=== PATIENT | female | born 1955 | race Caucasian/White ===

== ENCOUNTER 2017-01-21 18:05 | Inpatient (IN) | payer OTHER ==
[2017-01-21 18:40] VITALS: BP 108/78; PULSE 140; RESP 20; TEMP 103.2; O2SAT 98
[2017-01-21] MEDS ORDERED: LORazepam 0.5 MG TAB PO PRN (18:45)
[2017-01-21] MEDS ORDERED: TEMAZEPAM 15 MG CAP PO PRN (18:45)
[2017-01-21 20:00] VITALS: BP 100/68; PULSE 112; RESP 16; TEMP 100.7; O2SAT 97
[2017-01-21] MEDS ORDERED: ACETAMINOPHEN 325 MG TAB PO STA (20:11)
[2017-01-21] MEDS ORDERED: SODIUM CHLORID 0.9% 500 ML INJ 500 ML IV ONE (20:15)
[2017-01-21] MEDS: PIPERACIL-TAZO 3.375 GM PREMIX 50 ML IV SCH (20:35)
[2017-01-21 20:51] LABS: AUTOMATED NEUTROPHIL # 13.3 TH/MM3 (1.8-7.7); BASOPHIL % 0.2 % (0.0-2.0); HEMATOCRIT 24.4 % (35.0-46.0); HEMO FLAGS DIFF FINAL; LYMPHOCYTE # 0.1 TH/MM3 (1.0-4.8); MEAN CELL VOLUME 83.9 FL (80.0-100.0); MEAN CORPUSCULAR HEMOGLOBIN 27.4 PG (27.0-34.0); MEAN CORPUSCULAR HGB CONC 32.6 % (32.0-36.0); MONO % 6.6 % (0.0-8.0); NEUT % 92.2 % (16.0-70.0); PLATELET COUNT 269 TH/MM3 (150-450); RED CELL DISTRIBUTION WIDTH 18.1 % (11.6-17.2); WHITE BLOOD COUNT 14.4 TH/MM3 (4.0-11.0)
[2017-01-21] MEDS: ONDANSETRON ODT 4 MG TAB PO PRN (20:53)
[2017-01-21 21:00] LABS: APTT (PATIENT) 39.7 SEC (24.3-30.1); INTERNATIONAL NORMALIZED RATIO 1.3 RATIO; PROTHROMBIN TIME - PATIENT 14.3 SEC (9.8-11.6)
[2017-01-21 21:05] LABS: ANION GAP 9 MEQ/L (5-15); AST (GOT) 97 U/L (15-37); BICARBONATE 25.6 MEQ/L (21.0-32.0); BLOOD UREA NITROGEN 12 MG/DL (7-18); CHLORIDE 99 MEQ/L (98-107); GLOMERULAR FILTRATION RATE 134 ML/MIN (>89); POTASSIUM 3.6 MEQ/L (3.5-5.1); SODIUM (NA) 134 MEQ/L (136-145)
[2017-01-21 21:06] LABS: ALT (GPT) 96 U/L (10-53)
[2017-01-21 21:08] LABS: ALKALINE PHOSPHATASE 237 U/L (45-117); INDIRECT BILIRUBIN 0.5 MG/DL (0.0-0.8)
--- NOTE | 2017-01-21 21:24 | MH ---
cc: TIERA PUENTES M.D. DATE OF ADMISSION: 01/21/2017 DATE OF : 1955 ADMISSION DIAGNOSES 1. Fevers. 2. Liver abscess versus mets. 3. Tachycardia. 4. Leukocytosis. HISTORY OF PRESENT ILLNESS Ms. Castelan is a 61-year-old woman with a history of anxiety, depression and a left lower extremity deep venous thrombosis with a persistent inferior vena cava filter. She is a well-known patient with a history of locally advanced left breast cancer, low ER positivity with a questionable metastatic focus at L4. She received neoadjuvant chemotherapy and had residual disease at definitive surgery. She had a pathologic stage T2 N2a M0, ER negative, MA negative, HER2/randa negative breast cancer. She completed left chest wall radiation. She completed radiation to the solitary L4 lesion. She had concurrent Xeloda. She had no evidence of disease at the time of completion of her therapy. She was seen in clinic on 01/15/2017. She was feeling unwell. Review of labs from December 19 shows new anemia with a hemoglobin 9.9, white blood cell count was 8.1, a platelet count of 418. Alkaline phosphatase was elevated at 139. She was seen by our Nurse Practitioner and followed up in two weeks' time. The repeat labs shows a white blood cell count increase of 13.1, hemoglobin of 9.1, platelet count decreased to 359, new liver shows abnormality with alkaline phosphatase of 148, AST of 42, ALT of 45. At the time of the consultation, she was feeling unwell. She describes a lot of nausea, abdominal discomfort, intermittent diarrhea and GI symptoms. She has had a mild flare of her rheumatoid arthritis. She has not been taking her immunosuppressive medication. We feared the possibility of metastatic disease recurrence. We coordinated CT scan of the chest, abdomen and pelvis. Significant finding is a liver lesion. This is felt to be multiple metastatic disease. The images were reviewed by the radiologist insurance professional and liver abscess could not be excluded. Ms. Castelan was also having fevers and review of our vitals in clinic shows a low grade temperature of 99.4 dating back to December 19 and on the day of admission her initial temperature is 99.6. During the clinic visit and evaluation of the information, she developed chills and rigors. Her temperature increased significantly. She was subsequently admitted to the hospital for treatment of liver abscess. REVIEW OF SYSTEMS Significant for a decrease in appetite, weight loss, abdominal discomfort, GI symptoms. She denies any headaches, no vision changes. She has nausea, no vomiting. She has a great deal of anxiety. She has been unable to drive because of her symptoms. PAST MEDICAL HISTORY 1. HPV infection. 2. Migraine headaches. 3. Left breast cancer. 4. Rheumatoid arthritis. 5. Left lower extremity deep venous thromboses. PAST SURGICAL HISTORY 1. HPV, LEEP procedure. 2. Lumpectomy. 3. Left mastectomy. 4. Vein surgery. 5. IVC filter placement. 6. Local thrombolysis of left leg. 7. Stent placement in the left leg. FAMILY HISTORY She lives alone and has a daughter who is an ORTHODONTIST in [place]. Father is . SOCIAL HISTORY She is . She lives alone. She drinks alcohol occasionally. Denies any illicit drug use. She is a never smoker. PHYSICAL EXAMINATION VITAL SIGNS: T-max 103.2, heart rate 140, respiratory rate 20, blood pressure 108/78, saturation 98%. GENERAL: Ms. Castelan is a well-developed, thin, pale appearing woman in rigors. HEENT: Her pupils are round and reactive to light and accommodation. Oropharynx is clear. NECK: Neck is supple. LUNGS: Lungs are clear to auscultation. CARDIOVASCULAR: Reveals a tachycardia. ABDOMEN: Abdomen is benign. EXTREMITIES: Lower extremities with asymmetry, right leg more prominent than the left. There is some left forearm swelling and left arm lymphedema. BREAST: Examination was deferred. LABORATORY DATA White blood cell count is 22,000 on outside reference lab, she is anemic with hemoglobin of 9.3. Liver functions are elevated. ASSESSMENT AND PLAN Ms. Castelan is a 61-year-old woman with multiple medical problems. She has a history of left breast cancer locally advanced. She received neoadjuvant chemotherapy with partial response. 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 Staging evaluation from June shows no evidence of metastatic disease in the liver. It is quite surprising to see a liver lesion quite large and extensive on a CT scan evaluation from 01/20/2017 at [facility]. I discussed at length with Ms. Castelan the differential includes metastatic breast cancer to the liver. An alternative consideration is the possibility of liver abscess. She is chronically immunosuppressed with her treatment for her rheumatoid arthritis. Although she has not been taking it religiously. She has had this progressive illness and weakness and fatigue and liver function elevation over the last three to four weeks. We discussed plans to initiate empiric antibiotic therapy. We will refer her to interventional radiology for biopsy versus drainage depending on the radiographic findings. In the meantime, supportive treatment with Tylenol, IV fluid hydration bolus. She appears to be clinically improved after a period. She is hungry, she is tolerating p.o. Antiemetic therapy will be provided. She has a history of anxiety and benzodiazepine Ativan is available for p.r.n. use. Temazepam is available for p.r.n. sleep. I will obtain an ultrasound of the right lower extremity and the left upper arm to rule out deep venous thromboses. She has had a history of deep venous thromboses and has an inferior vena cava filter that is in place. This is an increased risk for recurrence of lower extremity venous thromboembolic events. We will monitor her temperature and cultures. Empiric antibiotic therapy is initiated. The hospitalist from [facility] will be consulted to take care of her other medical problems. The case was discussed with Dr. Denton. MD KINDRA Barber/BRITTA /8:23 PM /8:37 PM
[2017-01-21 23:49] VITALS: BP 86/57; PULSE 84; TEMP 97.6
[2017-01-22] VITALS (10 sets, daily range): BP systolic 92–110; BP diastolic 52–70; PULSE 80–122; RESP 16–20; TEMP 97–102.7; O2SAT 93–98
[2017-01-22] MEDS ORDERED: SODIUM CHLORID 0.9% 500 ML INJ 500 ML IV STA (00:07)
[2017-01-22] MEDS: ACETAMINOPHEN 325 MG TAB PO PRN ×3 (03:53→22:31)
[2017-01-22] MEDS: PIPERACIL-TAZO 3.375 GM PREMIX 50 ML IV SCH ×3 (03:53→19:41)
[2017-01-22] MEDS: ONDANSETRON ODT 4 MG TAB PO PRN (04:55)
[2017-01-22] MEDS ORDERED: ONDANSETRON HCL 4 MG/2 ML VIAL IV PUSH PRN (09:00)
[2017-01-22] MEDS ORDERED: LIDOCAINE HCL 1% 20 ML VIAL ONE (09:23)
[2017-01-22] MEDS ORDERED: fentaNYL CITRATE 250 MCG/5 ML AMP ONE (09:41)
[2017-01-22] MEDS ORDERED: MIDAZOLAM HCL 5 MG/5 ML VIAL ONE (09:41)
--- NOTE | 2017-01-22 09:58 | PD.ONC.PN ---
Subjective Subjective Remarks Tmax 103.2 last night. (Patient seen at 140PM) Patient just back from CT guided liver biopsy. she is cold with rigors. She denies pain, but is afraid she will get nauseated as she usually does with the rigors. The nurse has just given her some tylenol. Objective Data Date Time Temp Pulse Resp B/P Pulse Ox O2 Delivery O2 Flow Rate FiO2 01/22/17 08:00 97.4 107 20 97/58 97 01/22/17 04:00 97.0 101 16 110/70 98 01/22/17 00:53 91 95/60 01/21/17 23:49 97.6 84 86/57 01/21/17 20:00 100.7 112 16 100/68 97 01/21/17 18:40 103.2 140 20 108/78 98 01/22/17 01/22/17 01/22/17 07:00 15:00 23:00 Intake Total 0 ml Balance 0 ml Result Diagram: 01/21/17200601/21/172006 Laboratory Results Laboratory Tests Test 01/21/17 20:07 White Blood Count 14.4 TH/MM3 Red Blood Count 2.90 MIL/MM3 Hemoglobin 7.9 GM/DL Hematocrit 24.4 % Mean Corpuscular Volume 83.9 FL Mean Corpuscular Hemoglobin 27.4 PG Mean Corpuscular Hemoglobin 32.6 % Concent Red Cell Distribution Width 18.1 % Platelet Count 269 TH/MM3 Mean Platelet Volume 8.5 FL Neutrophils (%) (Auto) 92.2 % Lymphocytes (%) (Auto) 1.0 % Monocytes (%) (Auto) 6.6 % Eosinophils (%) (Auto) 0.0 % Basophils (%) (Auto) 0.2 % Neutrophils # (Auto) 13.3 TH/MM3 Lymphocytes # (Auto) 0.1 TH/MM3 Monocytes # (Auto) 1.0 TH/MM3 Eosinophils # (Auto) 0.0 TH/MM3 Basophils # (Auto) 0.0 TH/MM3 CBC Comment DIFF FINAL Differential Comment Prothrombin Time 14.3 SEC Prothromb Time International 1.3 RATIO Ratio Activated Partial 39.7 SEC Thromboplast Time Sodium Level 134 MEQ/L Potassium Level 3.6 MEQ/L Chloride Level 99 MEQ/L Carbon Dioxide Level 25.6 MEQ/L Anion Gap 9 MEQ/L Blood Urea Nitrogen 12 MG/DL Creatinine 0.47 MG/DL Estimat Glomerular Filtration 134 ML/MIN Rate Random Glucose 105 MG/DL Calcium Level 7.6 MG/DL Total Bilirubin 1.0 MG/DL Direct Bilirubin 0.5 MG/DL Indirect Bilirubin 0.5 MG/DL Aspartate Amino Transf 97 U/L (AST/SGOT) Alanine Aminotransferase 96 U/L (ALT/SGPT) Alkaline Phosphatase 237 U/L Total Protein 4.7 GM/DL Albumin 1.9 GM/DL Culture Results Microbiology Date/Time Procedure Status Source Growth 01/21/17 19:50 Aerobic Blood Culture Received Blood Peripheral Pending 01/21/17 19:50 Anaerobic Blood Culture Received Blood Peripheral Pending 01/21/17 20:07 Aerobic Blood Culture Received Blood Peripheral Pending 01/21/17 20:07 Anaerobic Blood Culture Received Blood Peripheral Pending Administered Medications Medications (Trade) Dose Ordered Sig/Juan J Route PRN Reason Start Time Stop Time Status Last Admin Dose Admin Piperacillin Sod/ Tazobactam Sod (Zosyn 3.375 Gm Premix) 50 ml @ 100 mls/hr Q8H IV 01/21/17 20:00 01/22/17 03:53 Acetaminophen (Tylenol) 650 mg Q6HR PRN PO FEVER 01/21/17 20:45 01/22/17 03:53 Ondansetron HCl (Zofran Odt) 4 mg Q6H PRN PO nausea 01/21/17 20:45 01/22/17 04:55 Objective Remarks GENERAL: Middle aged female, pale, sitting up in bed shivering with multiple blankets in place. SKIN: Warm and dry. HEAD: Atraumatic. Normocephalic. EYES: Pupils equal and round. No injection or drainage. ENT: No nasal bleeding or discharge. Mucous membranes pink and moist. NECK: Trachea midline. CARDIOVASCULAR: Regular rate and rhythm. RESPIRATORY: No accessory muscle use. Clear to auscultation. Breath sounds equal bilaterally. GASTROINTESTINAL: Abdomen soft, non-tender, nondistended. bandage in place, along right upper quadrant is c/d/i. MUSCULOSKELETAL: Extremities without clubbing, cyanosis, or edema. No obvious deformities. NEUROLOGICAL: Awake and alert. Normal speech. Assessment/Plan Problem List: (1) Breast cancer Status: Acute Plan: --history of locally advanced left breast cancer, low ER positivity with a questionable metastatic focus at L4. --s/p neoadjuvant chemotherapy with residual disease at definitive surgery. --pathologic stage T2 N2a M0, ER negative, [place] negative, HER2/randa negative breast cancer. --s/p left chest wall radiation. --s/p radiation to the solitary L4 lesion. +concurrent Xeloda. --no evidence of disease at the time of completion of her therapy. (2) Liver lesion Status: Acute Plan: --liver abscess vs metastatic disease --Staging evaluation from June shows no evidence of metastatic disease in the liver. --is chronically immunosuppressed with her treatment for her rheumatoid arthritis. --interventional radiology for biopsy versus drainage depending on the radiographic findings. --supportive treatment with Tylenol, IV fluid hydration bolus --on IV Zosyn (3) History of DVT (deep vein thrombosis) Status: Acute Plan: --will obtain an ultrasound of the right lower extremity and the left upper arm to rule out deep venous thromboses. ++history of deep venous thromboses and has an inferior vena cava filter that is in place. T Assessment 61-year-old female admitted with Fevers. Liver abscess versus mets. Tachycardia. and Leukocytosis. history of anxiety, depression, LLE DVT with a persistent inferior vena cava filter. h/o Left mastectomy. Plan 1. await ultrasound 2. continue antibiotics. 3. continue supportive care with IVF, anti-emetics and tylenol Attending Statement The exam, history, and the medical decision-making described in the above note were completed with the assistance of the mid-level provider. I reviewed and agree with the findings presented. I attest that I had a [id number] encounter with the patient on the same day, and personally performed and documented my assessment and findings in the medical record. Pt seen and examined. Febrile in PM, rigors, chills, tachycardia and mild hypotension but liver biopsy did not show purulent material. Pending gm stain and culture. Continue empiric antibiotic and support. If metastatic breast cancer plan to treat with [place] pending approval. Anemia recommend transfusion. Follow pathology report. Jocelyn Ba Jan 22, 2017 09:58 Rain Chiu MD Jan 22, 2017 18:27
--- NOTE | 2017-01-22 11:43 | RADRPT ---
EXAM DATE/TIME: 01/22/2017 10:09 [facility] COMPARISON: No previous studies available for comparison. However, the patient's CT of abdomen and pelvis perform ed yesterday a [facility] was reviewed. INDICATIONS : Liver masses. SEDATION TIME: 30 minutes BIOPSY SITE: Right upper quadrant. MEDICATION(S): 1.) 1 mg midazolam (Versed) IV 2.) 50 mcg fentanyl (Sublimaze) IV DEVICE(S): 1.) 18 Fr Temno core biopsy needle MEDICAL HISTORY : Carcinoma, breast. Cardiovascular disease. Deep venous thrombosis. Rheumatoid arthrirts. SURGICAL HISTORY : Coronary artery stent. IVC Filter placement. Left lumpectomy. ENCOUNTER: Initial ACUITY: 1 day PAIN SCORE: 0/10 LOCATION: abdomen. A total of six core specimen(s) were obtained and sent to the laboratory for pathologic evaluation. PROCEDURE: 1. CT guided liver biopsy. Prior to the procedure informed consent was obtained. The patient's prior CT examination was reviewed . Using automated exposure control and adjustment of the mA and/or kV according to patient size, radiat ion dose was kept as low as reasonably achievable to obtain optimal diagnostic quality images. The site was prepped in a sterile fashion. Full sterile technique was used, including cap, mask, radha rile gloves and gown and a large sterile sheet. Hand hygiene and 2% chlorhexidine and/or betadine/al cohol prep was utilized per protocol for cutaneous antisepsis. The skin and subcutaneous tissues wer e infiltrated with local anesthetic solution. With CT guidance one of the right lobe liver masses was localized. Imaging demonstrates the lesion to have a hyperdense rim with surrounding mild hypodensity. Biopsy was performed using the prescribed n eedle as above. Adequate hemostasis was obtained with compression at the puncture site. Follow-up CT scan reveals no hemorrhage or acute abnormality. The patient tolerated the procedure well and there were no complications. The patient was returned to the Radiology Outpatient Unit in stable condition. CONCLUSION: Uncomplicated CT guided biopsy of one of the right lobe liver lesions. Aspiration of the lesion did n ot yield any purulent material. Multiple samples were sent for pathological evaluation as well as bouchra robiology analysis. Mandeep Caicedo MD on January 22, 2017 at 11:37 Board Certified Radiologist. This report was verified electronically.
--- NOTE | 2017-01-22 12:29 | PD.CONS ---
HPI Service CP Hospitalists Consult Requested By Primary Care Physician John Courtney MD Diagnoses: History of Present Illness Pt is 61 yo woman with hx left breast ca s/p lumpectomy, chemoradiation and follows with Dr Chiu. She has RA but has apparently been off of her immunosuppressive med Arava. She presented to clinic with ongoing sx's of weakness, nausea, poor appetitite, fevers and night sweats. Eval in office revealed elevation of LFT and ct abd/pelvis at [facility] showed a Large Liver lesion which could be a met vs liver abscess. She was directly admitted to evaluate this further. Review of Systems Other n/v f/c night sweats weakness. Past Family Social History Past Medical History left breast ca. locally advanced. lumpectomy. chemoradiation radiation to L4 lesion left leg dvt. thrombectomy. ivc filter left leg stenting RA.off immunosuppression anxiety/depression. Reported Medications none Allergies: Coded Allergies: No Known Allergies (Unverified , 04/02/16) Family History nc Social History no tob. social etoh Physical Exam Vital Signs oriented. nad heart reg lung cta abd s/nt ext no edema Vital Signs Date Time Temp Pulse Resp B/P Pulse Ox O2 Delivery O2 Flow Rate FiO2 01/22/17 12:05 105 16 97/64 98 01/22/17 11:35 95 16 95/53 96 01/22/17 11:05 99 16 98/63 97 01/22/17 10:50 98.3 94 18 94/60 93 01/22/17 08:00 97.4 107 20 97/58 97 01/22/17 04:00 97.0 101 16 110/70 98 01/22/17 00:53 91 95/60 01/21/17 23:49 97.6 84 86/57 01/21/17 20:00 100.7 112 16 100/68 97 01/21/17 18:40 103.2 140 20 108/78 98 Laboratory Laboratory Tests Test 01/21/17 20:07 White Blood Count 14.4 Red Blood Count 2.90 Hemoglobin 7.9 Hematocrit 24.4 Mean Corpuscular Volume 83.9 Mean Corpuscular Hemoglobin 27.4 Mean Corpuscular Hemoglobin 32.6 Concent Red Cell Distribution Width 18.1 Platelet Count 269 Mean Platelet Volume 8.5 Neutrophils (%) (Auto) 92.2 Lymphocytes (%) (Auto) 1.0 Monocytes (%) (Auto) 6.6 Eosinophils (%) (Auto) 0.0 Basophils (%) (Auto) 0.2 Neutrophils # (Auto) 13.3 Lymphocytes # (Auto) 0.1 Monocytes # (Auto) 1.0 Eosinophils # (Auto) 0.0 Basophils # (Auto) 0.0 CBC Comment DIFF FINAL Differential Comment Prothrombin Time 14.3 Prothromb Time International 1.3 Ratio Activated Partial 39.7 Thromboplast Time Sodium Level 134 Potassium Level 3.6 Chloride Level 99 Carbon Dioxide Level 25.6 Anion Gap 9 Blood Urea Nitrogen 12 Creatinine 0.47 Estimat Glomerular Filtration 134 Rate Random Glucose 105 Calcium Level 7.6 Total Bilirubin 1.0 Direct Bilirubin 0.5 Indirect Bilirubin 0.5 Aspartate Amino Transf 97 (AST/SGOT) Alanine Aminotransferase 96 (ALT/SGPT) Alkaline Phosphatase 237 Total Protein 4.7 Albumin 1.9 Date/Time Procedure Status Source Growth 01/22/17 10:30 Gram Stain Received Fluid Other Pending 01/22/17 10:30 Body Fluid Culture Received Fluid Other Pending 01/21/17 20:07 Aerobic Blood Culture - Preliminary Resulted Blood Peripheral NO GROWTH IN 1 DAY 01/21/17 20:07 Anaerobic Blood Culture - Preliminary Resulted Blood Peripheral NO GROWTH IN 1 DAY Result Diagram: 01/21/17200601/21/172006 Assessment and Plan Problem List: (1) Liver lesion Status: Acute Plan: Pt has hx left breast ca s/p lumpectomy, chemoradiation. rad L4 lesion. Presents with elevation of LFT/liver lesion met vs abscess and sx's of n/v fever, night sweats and weakness. noted to also be anemic on bloodwork. Discussed with Dr Chiu. she had blood cx last night and started on broad abx with zosyn going for CT guided bx/aspiration of the lesion with radiology today echo blood tx per hem/onc prn antiemetics ivf dvt prophylaxis (2) History of DVT (deep vein thrombosis) Status: Resolved Plan: s/p thrombectomy/ivc filter (3) Breast cancer Status: Chronic Plan: see above (4) Rheumatoid arthritis Status: Chronic Plan: off her Arava. Nate Denton MD Jan 22, 2017 12:29
[2017-01-22] MEDS: PANTOPRAZOLE SOD 20 MG DELAYED RELEASE TAB PO SCH (13:26)
[2017-01-22] MEDS: SODIUM CHLOR 0.9% 1000 ML INJ 1,000 ML IV SCH (13:45)
[2017-01-22] MEDS ORDERED: diphenhydrAMINE HCL 25 MG CAP PO PRN (15:00)
[2017-01-22] MEDS ORDERED: SODIUM CHLOR 0.9% 250 ML INJ 250 ML IV ONE (15:00)
[2017-01-22] MEDS ORDERED: ACETAMINOPHEN 325 MG TAB PO PRN (15:00)
[2017-01-22] MEDS ORDERED: IBUPROFEN 400 MG TAB PO ONE (15:15)
[2017-01-22] MEDS ORDERED: PROMETHAZINE HCL 12.5 MG SUPP RECTAL PRN (15:15)
[2017-01-22 15:21] LABS: AUTOMATED NEUTROPHIL # 12.5 TH/MM3 (1.8-7.7); BASOPHIL % 0.3 % (0.0-2.0); EOSINOPHIL % 0.1 % (0.0-4.0); HEMATOCRIT 27.4 % (35.0-46.0); HEMO FLAGS DIFF FINAL; LYMPH % 1.5 % (9.0-44.0); LYMPHOCYTE # 0.2 TH/MM3 (1.0-4.8); MEAN CELL VOLUME 85.4 FL (80.0-100.0); MEAN CORPUSCULAR HEMOGLOBIN 27.9 PG (27.0-34.0); MEAN CORPUSCULAR HGB CONC 32.7 % (32.0-36.0); MONO % 2.4 % (0.0-8.0); NEUT % 95.7 % (16.0-70.0); PLATELET COUNT 261 TH/MM3 (150-450); RED BLOOD COUNT 3.21 MIL/MM3 (4.00-5.30); RED CELL DISTRIBUTION WIDTH 17.8 % (11.6-17.2)
[2017-01-22 15:39] LABS: ALT (GPT) 95 U/L (10-53); ANION GAP 8 MEQ/L (5-15); AST (GOT) 134 U/L (15-37); BICARBONATE 26.7 MEQ/L (21.0-32.0); BLOOD UREA NITROGEN 11 MG/DL (7-18); CHLORIDE 106 MEQ/L (98-107); GLOMERULAR FILTRATION RATE 183 ML/MIN (>89); POTASSIUM 3.8 MEQ/L (3.5-5.1); SODIUM (NA) 141 MEQ/L (136-145)
[2017-01-22 15:42] LABS: ALKALINE PHOSPHATASE 267 U/L (45-117); TOTAL BILIRUBIN ADULT 1.4 MG/DL (0.2-1.0)
--- NOTE | 2017-01-22 16:35 | RADRPT ---
EXAM DATE/TIME: 01/22/2017 15:46 [facility] COMPARISON: No previous studies available for comparison. INDICATIONS : Left arm swelling. MEDICAL HISTORY : Rheumatoid arthritis. Carcinoma, breast. Deep venous thrombosis. SURGICAL HISTORY : Two stents and filter placed for blood clot. Lumpectomy. Chemotherapy. Radiation therapy. ENCOUNTER: Initial ACUITY: 1 day PAIN SCORE: 2/10 LOCATION: Left arm. FINDINGS: There is spontaneous flow documented in the brachial, basilic, cephalic, axillary, and subclavian vei ns. The vessels are compressible and augmentation response is documented. No filling defects are se en. The flow is phasic with respiration. Direction of flow in the jugular vein is caudal. CONCLUSION: No DVT is identified within the left upper extremity. Mandeep Caicedo MD on January 22, 2017 at 16:32 Board Certified Radiologist. This report was verified electronically.
--- NOTE | 2017-01-22 17:02 | RADRPT ---
EXAM DATE/TIME: 01/22/2017 15:21 [facility] COMPARISON: No previous studies available for comparison. EXTERNAL COMPARISON : [facility], US LEG, LEFT VENOUS DOPPLER, May 22, 2014 INDICATIONS : Bilateral leg swelling. MEDICAL HISTORY : Rheumatoid arthritis. Carcinoma, breast. Deep venous thrombosis. SURGICAL HISTORY : Two stents and filter placed for blood clot. Lumpectomy. Chemotherapy. Radiation therapy. ENCOUNTER: Initial ACUITY: 1 day PAIN SCORE: 2/10 LOCATION: Bilateral leg. TECHNIQUE: Venous ultrasound of the left and right leg was performed from the inguinal ligament to the proximal calf. Real-time, color Doppler and spectral tracing, compression and augmentation techniques were us ed. FINDINGS: RIGHT LEG: There is normal compressibility of the deep venous system from the inguinal region to the proximal ca lf. No echogenic clot is seen in the lumen of the common femoral, femoral, popliteal, and posterior tibial veins. There is a normal response of the venous system to proximal and distal augmentation an d respiration. LEFT LEG: There is normal compressibility of the deep venous system from the inguinal region to the proximal ca lf. No echogenic clot is seen in the lumen of the common femoral, femoral, popliteal, and posterior tibial veins. There is a normal response of the venous system to proximal and distal augmentation an d respiration. CONCLUSION: 1. No sonographic evidence for lower extremity deep venous thrombosis bilaterally. Jorge Lopez MD on January 22, 2017 at 16:59 Board Certified Radiologist. This report was verified electronically.
[2017-01-23] VITALS (9 sets, daily range): BP systolic 92–100; BP diastolic 53–62; PULSE 82–150; RESP 18–22; TEMP 97.4–101.2; O2SAT 95–98
[2017-01-23] MEDS ORDERED: no medication (01:47)
[2017-01-23] MEDS: PIPERACIL-TAZO 3.375 GM PREMIX 50 ML IV SCH ×2 (04:29→13:00)
[2017-01-23] MEDS: SODIUM CHLOR 0.9% 1000 ML INJ 1,000 ML IV SCH ×2 (04:29→16:58)
[2017-01-23] MEDS: ACETAMINOPHEN 325 MG TAB PO PRN ×3 (05:25→18:38)
[2017-01-23] MEDS ORDERED: NON-FORMULARY DRUG IM ONE (07:00)
[2017-01-23] MEDS: PANTOPRAZOLE SOD 20 MG DELAYED RELEASE TAB PO SCH (08:25)
[2017-01-23] MEDS: METOCLOPRAMIDE HCL 10 MG/2 ML VIAL IV PUSH PRN ×2 (08:26→18:38)
--- NOTE | 2017-01-23 08:43 | HHI.PR ---
Subjective Remarks nauseated this AM..but trying to order breakfast. some rigors overnight. Objective Vitals heart reg lung cta abd s/nt ext no edema Vital Signs Date Time Temp Pulse Resp B/P Pulse Ox O2 Delivery O2 Flow Rate FiO2 01/23/17 05:27 98.7 01/23/17 04:00 97.4 97 18 98/60 98 01/23/17 02:23 97.4 01/23/17 00:00 97.5 82 18 96/62 98 01/22/17 20:00 98.6 80 20 92/55 95 01/22/17 16:34 100.0 122 20 98/52 96 01/22/17 15:15 102.7 01/22/17 12:05 105 16 97/64 98 01/22/17 11:35 95 16 95/53 96 01/22/17 11:05 99 16 98/63 97 01/22/17 10:50 98.3 94 18 94/60 93 01/22/17 01/22/17 01/23/17 15:00 23:00 07:00 Intake Total 240 ml 234 ml 240 ml Balance 240 ml 234 ml 240 ml Intake Oral 240 ml 240 ml IV Total 234 ml # Voids 1 2 Result Diagram: 01/22/17 1434 01/22/17 1434 A/P Problem List: (1) Liver lesion Status: Acute Plan: Pt has hx left breast ca s/p lumpectomy, chemoradiation. rad L4 lesion. Presents with elevation of LFT/liver lesion met vs abscess and sx's of n/v fever, night sweats and weakness. noted to also be anemic on bloodwork. Discussed with Dr Chiu. blood cx pending and started on broad abx with zosyn CT guided biopsy of the lesion with radiology 01/22..cx/path pending. no pus aspirated. echo pending. blood tx per hem/onc on 01/22 prn antiemetics nutrition supplement ivf dvt prophylaxis (2) History of DVT (deep vein thrombosis) Status: Resolved Plan: s/p thrombectomy/ivc filter (3) Breast cancer Status: Chronic Plan: see above (4) Rheumatoid arthritis Status: Chronic Plan: off her Arava. Nate Denton MD Jan 23, 2017 08:43
[2017-01-23] MEDS ORDERED: ONDANSETRON HCL 4 MG/2 ML VIAL IV PUSH PRN (09:00)
--- NOTE | 2017-01-23 10:45 | PD.ONC.PN ---
Subjective Subjective Remarks Afebrile overnight. Patient feeling much better today. She ate corn flakes and applesauce for breakfast. No vomiting today. No abdominal pain. Color in face improved. Objective Data Date Time Temp Pulse Resp B/P Pulse Ox O2 Delivery O2 Flow Rate FiO2 01/23/17 08:59 98.0 114 20 94/53 98 01/23/17 05:27 98.7 01/23/17 04:00 97.4 97 18 98/60 98 01/23/17 02:23 97.4 01/23/17 00:00 97.5 82 18 96/62 98 01/22/17 20:00 98.6 80 20 92/55 95 01/22/17 16:34 100.0 122 20 98/52 96 01/22/17 15:15 102.7 01/22/17 12:05 105 16 97/64 98 01/22/17 11:35 95 16 95/53 96 01/22/17 11:05 99 16 98/63 97 01/22/17 10:50 98.3 94 18 94/60 93 01/23/17 01/23/17 01/23/17 07:00 15:00 23:00 Intake Total 240 ml Balance 240 ml Result Diagram: 01/22/17 1434 01/22/17 1434 Laboratory Results Laboratory Tests Test 01/22/17 14:34 White Blood Count 13.0 TH/MM3 Red Blood Count 3.21 MIL/MM3 Hemoglobin 9.0 GM/DL Hematocrit 27.4 % Mean Corpuscular Volume 85.4 FL Mean Corpuscular Hemoglobin 27.9 PG Mean Corpuscular Hemoglobin 32.7 % Concent Red Cell Distribution Width 17.8 % Platelet Count 261 TH/MM3 Mean Platelet Volume 8.4 FL Neutrophils (%) (Auto) 95.7 % Lymphocytes (%) (Auto) 1.5 % Monocytes (%) (Auto) 2.4 % Eosinophils (%) (Auto) 0.1 % Basophils (%) (Auto) 0.3 % Neutrophils # (Auto) 12.5 TH/MM3 Lymphocytes # (Auto) 0.2 TH/MM3 Monocytes # (Auto) 0.3 TH/MM3 Eosinophils # (Auto) 0.0 TH/MM3 Basophils # (Auto) 0.0 TH/MM3 CBC Comment DIFF FINAL Differential Comment Sodium Level 141 MEQ/L Potassium Level 3.8 MEQ/L Chloride Level 106 MEQ/L Carbon Dioxide Level 26.7 MEQ/L Anion Gap 8 MEQ/L Blood Urea Nitrogen 11 MG/DL Creatinine 0.36 MG/DL Estimat Glomerular Filtration 183 ML/MIN Rate Random Glucose 86 MG/DL Lactic Acid Level 2.4 mmol/L Calcium Level 7.7 MG/DL Total Bilirubin 1.4 MG/DL Aspartate Amino Transf 134 U/L (AST/SGOT) Alanine Aminotransferase 95 U/L (ALT/SGPT) Alkaline Phosphatase 267 U/L Total Protein 4.8 GM/DL Albumin 1.8 GM/DL Culture Results Microbiology Date/Time Procedure Status Source Growth 01/21/17 19:50 Aerobic Blood Culture - Preliminary Resulted Blood Peripheral NO GROWTH IN 1 DAY 01/21/17 19:50 Anaerobic Blood Culture - Preliminary Resulted Blood Peripheral NO GROWTH IN 1 DAY 01/21/17 20:07 Aerobic Blood Culture - Preliminary Resulted Blood Peripheral NO GROWTH IN 1 DAY 01/21/17 20:07 Anaerobic Blood Culture - Preliminary Resulted Blood Peripheral NO GROWTH IN 1 DAY 01/22/17 10:30 Gram Stain - Final Resulted Fluid Other 01/22/17 10:30 Body Fluid Culture Resulted Fluid Other Pending 01/22/17 14:30 Influenza Types A,B Antigen (ZACHARIAH) - Final Complete Nasal Aspirate NEGATIVE FOR FLU A AND B ANTIGEN.... Administered Medications Medications (Trade) Dose Ordered Sig/Juan J Route PRN Reason Start Time Stop Time Status Last Admin Dose Admin Piperacillin Sod/ Tazobactam Sod (Zosyn 3.375 Gm Premix) 50 ml @ 100 mls/hr Q8H IV 01/21/17 20:00 01/23/17 04:29 Acetaminophen (Tylenol) 650 mg Q6HR PRN PO FEVER 01/21/17 20:45 01/23/17 05:25 Ondansetron HCl (Zofran Odt) 4 mg Q6H PRN PO nausea 01/21/17 20:45 01/22/17 04:55 Pantoprazole Sodium 20 mg 20 mg DAILY PO 01/22/17 09:00 01/23/17 08:25 Sodium Chloride (NS 1000 ml Inj) 1,000 ml @ 83 mls/hr Q12H3M IV 01/22/17 13:45 01/23/17 04:29 Metoclopramide HCl (Reglan Inj) 10 mg Q8H PRN IV PUSH persistent n/v 01/23/17 07:30 01/23/17 08:26 Objective Remarks GENERAL: Middle aged female, sitting up in bed in nad. Color in face improved. SKIN: Warm and dry. HEAD: Normocephalic. EYES: No injection or drainage. MOUTH: pharynx clear. NECK: Supple, trachea midline. CARDIOVASCULAR: Regular rate and rhythm RESPIRATORY: Breath sounds equal bilaterally. No accessory muscle use. GASTROINTESTINAL: Abdomen soft, non-tender, nondistended. bandage in place, right upper quadrant is c/d/i. EXTREMITIES: No cyanosis, or edema. MUSCULOSKELETAL: Adequate muscle tone. Assessment/Plan Problem List: (1) Sepsis Status: Acute Plan: --BC no growth --on IV Zosyn --echo pending (2) Breast cancer Status: Chronic Plan: --history of locally advanced left breast cancer, low ER positivity with a questionable metastatic focus at L4. --s/p neoadjuvant chemotherapy with residual disease at definitive surgery. --pathologic stage T2 N2a M0, ER negative, [place] negative, HER2/randa negative breast cancer. --s/p left chest wall radiation. --s/p radiation to the solitary L4 lesion. +concurrent Xeloda. --no evidence of disease at the time of completion of her therapy. (3) Liver lesion Status: Acute Plan: --liver abscess vs metastatic disease --s/p biopsy in IR, pathology pending. --Staging evaluation from June showed no evidence of metastatic disease in the liver. --supportive treatment with Tylenol, IV fluid hydration --on IV Zosyn (4) History of DVT (deep vein thrombosis) Status: Resolved Plan: --u/s RLE and LUE both negative for DVT ++history of deep venous thromboses and has an inferior vena cava filter that is in place. Assessment 61-year-old female admitted with Fevers. Liver abscess versus mets. Tachycardia. and Leukocytosis. history of anxiety, depression, LLE DVT with a persistent inferior vena cava filter. h/o Left mastectomy. Plan 1. continue IVF, anti-emetics and Zosyn 2. await echo 3. continue diet as tolerated. 4. await pathology Attending Statement The exam, history, and the medical decision-making described in the above note were completed with the assistance of the mid-level provider. I reviewed and agree with the findings presented. I attest that I had a [id number] encounter with the patient on the same day, and personally performed and documented my assessment and findings in the medical record. Pt seen and examined. Discussed the biopsy finding metastatic breast cancer in liver. Fevers likely due to tumor fever, cultures neg, stop Abx, monitor off abx. Start Naprosen to stop/control fevers. Check CBC in AM. Transfuse as needed for hgb <8.0. Monitor for bleeding. Plan to initiate palliative chemo on Thursday. Jocelyn Ba Jan 23, 2017 10:45 Rain Chiu MD Jan 23, 2017 19:54
[2017-01-23 12:40] LABS: AUTOMATED NEUTROPHIL # 21.9 TH/MM3 (1.8-7.7); BASOPHIL # 0.1 TH/MM3 (0-0.2); BASOPHIL % 0.6 % (0.0-2.0); EOSINOPHIL % 0.1 % (0.0-4.0); HEMATOCRIT 25.4 % (35.0-46.0); LYMPH % 0.6 % (9.0-44.0); LYMPHOCYTE # 0.1 TH/MM3 (1.0-4.8); MEAN CELL VOLUME 85.5 FL (80.0-100.0); MEAN CORPUSCULAR HEMOGLOBIN 27.8 PG (27.0-34.0); MEAN CORPUSCULAR HGB CONC 32.5 % (32.0-36.0); MONO % 2.9 % (0.0-8.0); NEUT % 95.8 % (16.0-70.0); PLATELET COUNT 186 TH/MM3 (150-450); RED BLOOD COUNT 2.97 MIL/MM3 (4.00-5.30); RED CELL DISTRIBUTION WIDTH 18.1 % (11.6-17.2); WHITE BLOOD COUNT 22.9 TH/MM3 (4.0-11.0)
[2017-01-23 12:46] LABS: HEMO FLAGS AUTO DIFF
[2017-01-23 13:02] LABS: ALT (GPT) 79 U/L (10-53); ANION GAP 6 MEQ/L (5-15); AST (GOT) 104 U/L (15-37); BICARBONATE 26.3 MEQ/L (21.0-32.0); BLOOD UREA NITROGEN 15 MG/DL (7-18); CHLORIDE 110 MEQ/L (98-107); GLOMERULAR FILTRATION RATE 149 ML/MIN (>89); POTASSIUM 3.4 MEQ/L (3.5-5.1); SODIUM (NA) 142 MEQ/L (136-145)
[2017-01-23 13:04] LABS: ALKALINE PHOSPHATASE 289 U/L (45-117); TOTAL BILIRUBIN ADULT 0.8 MG/DL (0.2-1.0)
[2017-01-23 14:36] LABS: BANDS 44 % (0-6); METAMYELOCYTES 1 % (0-1); OVALOCYTES 1+ (NORMAL); POLYS (SEG NEUTROPHILS) 51 % (16-70); WBC DIFF SAMPLE 100
[2017-01-23 14:38] LABS: BURR CELLS 2+ (NORMAL); HELMET CELLS OCC (NORMAL); PLATELET ESTIMATE SMEAR NORMAL (NORMAL); PLATELET MORPHOLOGY NORMAL (NORMAL); SCAN/DIFF FINAL DIFF MANUAL; TOXIC GRANULATION 1+ (NORMAL); TOXIC VACUOLATION PRESENT (NONE SEEN)
[2017-01-23 14:39] LABS: KERATOCYTES 1+ (NORMAL)
--- NOTE | 2017-01-23 17:15 | EC ---
Study Study Date:01/23/2017 STUDY CONCLUSIONS SUMMARY - Left ventricle: The cavity size was normal. Wall thickness was normal. Systolic function was probably normal. The estimated ejection fraction was in the range of 50% to 55%. Although no diagnostic regional wall motion abnormality was identified, this possibility cannot be completely excluded on the basis of this study. - Pulmonary arteries: PA peak pressure: 33mm Hg (S). - Pericardium, extracardiac: A pericardial fat padvs small pericardial effusion was noted. No hemodynamic compromise. If LV function is below 40, please consider prescribing an ACEI or ARB or document rationale for non-use. PROCEDURE DATA STUDY STATUS: Elective. Procedure: Transthoracic echocardiography. Image quality was fair. Scanning was performed from the parasternal, apical, and subcostal acoustic windows. Study completion: The patient tolerated the procedure well. Transthoracic echocardiography. M-mode, complete 2D, complete spectral Doppler, and color Doppler. Height: Height: 63in. Weight: Weight: 118.8lb. Body mass index: BMI: 21.1kg/m^2. Body surface area: BSA: 1.55m^2. Patient status: Inpatient. CARDIAC ANATOMY LEFT VENTRICLE: The cavity size was normal. Wall thickness was normal. Systolic function was probably normal. The estimated ejection fraction was in the range of 50% to 55%. Although no diagnostic regional wall motion abnormality was identified, this possibility cannot be completely excluded on the basis of this study. AORTIC VALVE: The valve appears to be grossly normal. Trileaflet. Doppler: There was no stenosis. No significant regurgitation. Valve area: 2.41cm^2 (Vmax). Indexed valve area: 1.55cm^2/m^2 (Vmax). MITRAL VALVE: The valve appears to be grossly normal. Doppler: There was no evidence for stenosis. Trace regurgitation. LEFT ATRIUM: The atrium was normal in size. RIGHT VENTRICLE: The cavity size was normal. PULMONIC VALVE: Not well visualized. Doppler: There was no evidence for stenosis. Trace regurgitation. TRICUSPID VALVE: The valve appears to be grossly normal. Doppler: There was no evidence for stenosis. Trace to mild regurgitation. PERICARDIUM: A pericardial fat padvs small pericardial effusion was noted. No hemodynamic compromise. Patient weight: 118.8lb _Ejection fraction:_ 65-75% _Fractional shortening:_ 32% up to 5Kg 5-11.5Kg 11.6-22.9Kg 23-45Kg 45-57Kg Aortic Root 7-13 <17 13-22 17-27 17-27 LA diam 6-13 <23 24-38 33-47 37-40 RVID 10-17 7-15 7-15 7-18 8-17 LVIDd 12-22 <32 24-38 33-47 37-40 LVPW 2-4 3-6 5-7 6-8 7-8 IVS 2-4 3-6 5-7 6-8 7-8 BASIC MEASUREMENTS ADULT NORMAL Left ventricle LV internal dimension, ED, chordal 47.4 mm 43-52 level, PLAX LV internal dimension, ES, chordal 35.7 mm 23-38 level, PLAX Fractional shortening, chordal level, *25 % >29 PLAX LV posterior wall thickness, ED 8.66 mm IVS/LVPW ratio, ED 1.04 <1.3 Ventricular septum Septal thickness, ED 9.02 mm Aortic valve Leaflet separation 18 mm 15-26 Right ventricle RV internal dimension, ED, PLAX 20.4 mm 19-38 BASIC MEASUREMENTS ADULT NORMAL Aortic valve Leaflet separation 18 mm 15-26 Aorta Root diameter, ED 23 mm 20-37 Left atrium Anterior-posterior dimension, ES 27 mm 19-40 Anterior-posterior dimension index, ES 1.74 cm/m^2 <2.2 LA/aortic root ratio 1.17 DOPPLER MEASUREMENTS ADULT NORMAL Main pulmonary artery Pressure, S *33 mm Hg =30 Pressure, ED 18 mm Hg Aortic valve Peak velocity, S 134 cm/s Valve area, Vmax 2.41 cm^2 Valve area index, Vmax 1.55 cm^2/m^2 Mitral valve Peak E-wave velocity 60.2 cm/s Peak A-wave velocity 71.6 cm/s Deceleration time *132 ms 150-230 Peak E/A ratio 0.8 Tricuspid valve Regurgitant peak velocity 250 cm/s Peak RV-RA gradient, S 25 mm Hg Maximal regurgitant velocity 250 cm/s Systemic veins Estimated CVP 10 mm Hg Right ventricle RV pressure, S *38 mm Hg <30 Pulmonic valve Peak velocity, S 109 cm/s Regurgitant velocity, ED 144 cm/s LEGEND: Mean values are shown as u=mean value. Asterisk (*) thompson values outside specified normal range. Prepared and signed by Alexi Montana [id number]
[2017-01-23] MEDS: NAPROXEN 250 MG TAB PO SCH (20:18)
[2017-01-23] MEDS ORDERED: LORazepam 2 MG/ML VIAL IV PUSH ONE (20:30)
[2017-01-23] MEDS: PHYTONADIONE 5 MG TAB PO SCH (22:06)
[2017-01-24] VITALS: BP 94/53; PULSE 109; RESP 18; TEMP 96.5; O2SAT 97
[2017-01-24 04:00] VITALS: BP 117/65; PULSE 91; RESP 16; TEMP 97.2; O2SAT 97
[2017-01-24] MEDS: SODIUM CHLOR 0.9% 1000 ML INJ 1,000 ML IV SCH ×2 (05:00→14:01)
[2017-01-24 06:04] LABS: AUTOMATED NEUTROPHIL # 16.9 TH/MM3 (1.8-7.7); BASOPHIL % 0.3 % (0.0-2.0); EOSINOPHIL % 0.2 % (0.0-4.0); HEMATOCRIT 23.3 % (35.0-46.0); LYMPH % 0.8 % (9.0-44.0); LYMPHOCYTE # 0.1 TH/MM3 (1.0-4.8); MEAN CELL VOLUME 85.4 FL (80.0-100.0); MEAN CORPUSCULAR HEMOGLOBIN 27.4 PG (27.0-34.0); MONO % 2.2 % (0.0-8.0); NEUT % 96.5 % (16.0-70.0); PLATELET COUNT 99 TH/MM3 (150-450); RED BLOOD COUNT 2.73 MIL/MM3 (4.00-5.30); RED CELL DISTRIBUTION WIDTH 18.2 % (11.6-17.2); WHITE BLOOD COUNT 17.5 TH/MM3 (4.0-11.0)
[2017-01-24 06:14] LABS: HEMO FLAGS AUTO DIFF
[2017-01-24 06:19] LABS: BICARBONATE 25.1 MEQ/L (21.0-32.0)
[2017-01-24 06:37] LABS: CALCIUM-PROTEIN CORRECTED 9.3 MG/DL (8.5-10.1)
[2017-01-24 07:43] LABS: ACANTHOCYTES OCC (NORMAL); BANDS 15 % (0-6); NEUTROPHIL # MANUAL DIFF 17.5 TH/MM3 (1.8-7.7); OVALOCYTES 1+ (NORMAL); POLYS (SEG NEUTROPHILS) 85 % (16-70); WBC DIFF SAMPLE 100
[2017-01-24 07:44] LABS: KERATOCYTES OCC (NORMAL); PLATELET ESTIMATE SMEAR LOW (NORMAL); PLATELET MORPHOLOGY NORMAL (NORMAL); SCAN/DIFF FINAL DIFF MANUAL
[2017-01-24] MEDS ORDERED: ACETAMINOPHEN 325 MG TAB PO PRN (08:00)
[2017-01-24] MEDS ORDERED: diphenhydrAMINE HCL 25 MG CAP PO PRN (08:00)
--- NOTE | 2017-01-24 08:03 | HHI.PR ---
Subjective Remarks doing ok. wants to go home. Objective Vitals heart reg lung cta abd s/nt ext no edema Vital Signs Date Time Temp Pulse Resp B/P Pulse Ox O2 Delivery O2 Flow Rate FiO2 01/24/17 04:00 97.2 91 16 117/65 97 01/24/17 00:00 96.5 109 18 94/53 97 01/23/17 22:14 97.7 01/23/17 20:00 19 01/23/17 20:00 101.2 150 22 100/61 95 01/23/17 16:00 99.0 116 20 92/56 97 01/23/17 12:31 98.2 97 20 95/55 98 01/23/17 08:59 98.0 114 20 94/53 98 01/23/17 01/23/17 01/24/17 15:00 23:00 07:00 Intake Total 700 ml 1299 ml 240 ml Balance 700 ml 1299 ml 240 ml Intake Oral 720 ml 240 ml IV Total 700 ml 579 ml # Voids 3 3 1 # Bowel Movements 1 Result Diagram: 01/24/17 0449 01/24/17 0449 A/P Problem List: (1) Liver lesion Status: Acute Plan: Pt has hx left breast ca s/p lumpectomy, chemoradiation. rad L4 lesion. Presents with elevation of LFT/liver lesion met vs abscess and sx's of n/v fever, night sweats and weakness. noted to also be anemic on bloodwork. Discussed with Dr Chiu. Bx shows lesion consistent with prior breast ca stop abx Pt to get blood transfusion today then d/c later today or tomorrow with f/u for chemo on Thursday (2) History of DVT (deep vein thrombosis) Status: Resolved Plan: s/p thrombectomy/ivc filter (3) Breast cancer Status: Chronic Plan: see above (4) Rheumatoid arthritis Status: Chronic Plan: off her Arava. Nate Denton MD Jan 24, 2017 08:02
--- NOTE | 2017-01-24 08:45 | PD.ONC.PN ---
Subjective Subjective Remarks Tmax 101.2 overnight. Naprosyn started shortly thereafter for fevers and none since. She is asking us to call her daughter and fill her in. She c/o persistent nausea Objective Data Date Time Temp Pulse Resp B/P Pulse Ox O2 Delivery O2 Flow Rate FiO2 01/24/17 04:00 97.2 91 16 117/65 97 01/24/17 00:00 96.5 109 18 94/53 97 01/23/17 22:14 97.7 01/23/17 20:00 19 01/23/17 20:00 101.2 150 22 100/61 95 01/23/17 16:00 99.0 116 20 92/56 97 01/23/17 12:31 98.2 97 20 95/55 98 01/23/17 08:59 98.0 114 20 94/53 98 01/24/17 01/24/17 01/24/17 07:00 15:00 23:00 Intake Total 240 ml Balance 240 ml Result Diagram: 01/24/17 0449 01/24/17 0449 Laboratory Results Laboratory Tests Test 01/23/17 01/24/17 12:26 04:49 White Blood Count 22.9 TH/MM3 17.5 TH/MM3 Red Blood Count 2.97 MIL/MM3 2.73 MIL/MM3 Hemoglobin 8.2 GM/DL 7.5 GM/DL Hematocrit 25.4 % 23.3 % Mean Corpuscular Volume 85.5 FL 85.4 FL Mean Corpuscular Hemoglobin 27.8 PG 27.4 PG Mean Corpuscular Hemoglobin 32.5 % 32.0 % Concent Red Cell Distribution Width 18.1 % 18.2 % Platelet Count 186 TH/MM3 99 TH/MM3 Mean Platelet Volume 8.8 FL 8.2 FL Neutrophils (%) (Auto) 95.8 % 96.5 % Lymphocytes (%) (Auto) 0.6 % 0.8 % Monocytes (%) (Auto) 2.9 % 2.2 % Eosinophils (%) (Auto) 0.1 % 0.2 % Basophils (%) (Auto) 0.6 % 0.3 % Neutrophils # (Auto) 21.9 TH/MM3 16.9 TH/MM3 Lymphocytes # (Auto) 0.1 TH/MM3 0.1 TH/MM3 Monocytes # (Auto) 0.7 TH/MM3 0.4 TH/MM3 Eosinophils # (Auto) 0.0 TH/MM3 0.0 TH/MM3 Basophils # (Auto) 0.1 TH/MM3 0.0 TH/MM3 CBC Comment AUTO DIFF AUTO DIFF Differential Total Cells 100 100 Counted Neutrophils % (Manual) 51 % 85 % Band Neutrophils % 44 % 15 % Lymphocytes % 2 % Monocytes % 2 % Neutrophils # (Manual) 22.0 TH/MM3 17.5 TH/MM3 Metamyelocytes 1 % Differential Comment FINAL DIFF FINAL DIFF MANUAL MANUAL Toxic Granulation 1+ Toxic Vacuolation PRESENT Platelet Estimate NORMAL LOW Platelet Morphology Comment NORMAL NORMAL Ovalocytes 1+ 1+ Helmet Cells OCC Yuli Cells 2+ Keratocytes 1+ OCC Sodium Level 142 MEQ/L 143 MEQ/L Potassium Level 3.4 MEQ/L 4.0 MEQ/L Chloride Level 110 MEQ/L 111 MEQ/L Carbon Dioxide Level 26.3 MEQ/L 25.1 MEQ/L Anion Gap 6 MEQ/L 7 MEQ/L Blood Urea Nitrogen 15 MG/DL 18 MG/DL Creatinine 0.43 MG/DL 0.33 MG/DL Estimat Glomerular Filtration 149 ML/MIN 202 ML/MIN Rate Random Glucose 88 MG/DL 64 MG/DL Lactic Acid Level 2.7 mmol/L Calcium Level 7.8 MG/DL 7.2 MG/DL Total Bilirubin 0.8 MG/DL Aspartate Amino Transf 104 U/L (AST/SGOT) Alanine Aminotransferase 79 U/L (ALT/SGPT) Alkaline Phosphatase 289 U/L Total Protein 4.4 GM/DL 3.6 GM/DL Albumin 1.6 GM/DL Acanthocytes OCC Protein Corrected Calcium 9.3 MG/DL Blood Type A POSITIVE Antibody Screen NEGATIVE Crossmatch Leukocyte-Reduced Red Blood Cells Blood Bank Comment Culture Results Microbiology Date/Time Procedure Status Source Growth 01/21/17 19:50 Aerobic Blood Culture - Preliminary Resulted Blood Peripheral NO GROWTH IN 2 DAYS 01/21/17 19:50 Anaerobic Blood Culture - Preliminary Resulted Blood Peripheral NO GROWTH IN 2 DAYS 01/21/17 20:07 Aerobic Blood Culture - Preliminary Resulted Blood Peripheral NO GROWTH IN 2 DAYS 01/21/17 20:07 Anaerobic Blood Culture - Preliminary Resulted Blood Peripheral NO GROWTH IN 2 DAYS 01/22/17 10:30 Gram Stain - Final Resulted Fluid Other 01/22/17 10:30 Body Fluid Culture - Preliminary Resulted Fluid Other NO GROWTH IN 24 HOURS. 01/22/17 14:30 Influenza Types A,B Antigen (ZACHARIAH) - Final Complete Nasal Aspirate NEGATIVE FOR FLU A AND B ANTIGEN.... Administered Medications Medications (Trade) Dose Ordered Sig/Juan J Route PRN Reason Start Time Stop Time Status Last Admin Dose Admin Lorazepam (Ativan) 0.5 mg DAILY PRN PO anxiety or before procedure 01/21/17 18:45 01/23/17 20:17 Temazepam (Restoril) 15 mg HS PRN PO SLEEP 01/21/17 18:45 01/23/17 20:24 Acetaminophen (Tylenol) 650 mg Q6HR PRN PO FEVER 01/21/17 20:45 01/23/17 18:38 Ondansetron HCl (Zofran Odt) 4 mg Q6H PRN PO nausea 01/21/17 20:45 01/22/17 04:55 Pantoprazole Sodium 20 mg 20 mg DAILY PO 01/22/17 09:00 01/23/17 08:25 Sodium Chloride (NS 1000 ml Inj) 1,000 ml @ 83 mls/hr Q12H3M IV 01/22/17 13:45 01/24/17 05:00 Ondansetron HCl (Zofran Inj) 4 mg Q4HR PRN IV PUSH nausea 01/23/17 09:00 01/23/17 13:07 Metoclopramide HCl (Reglan Inj) 10 mg Q8H PRN IV PUSH persistent n/v 01/23/17 07:30 01/23/17 18:38 Naproxen (Naprosyn) 250 mg Q12H PO 01/23/17 21:00 01/23/17 20:18 Phytonadione (Mephyton) 5 mg DAILY PO 01/23/17 21:00 01/23/17 22:06 Objective Remarks GENERAL: Pt is anxious appearing, sitting up in bed. She has xerostomia making it difficult to speak. SKIN: Warm and dry. Somewhat pale appearing. HEAD: Normocephalic. EYES: No injection or drainage. NECK: Supple, trachea midline. CARDIOVASCULAR: +S1/S2. Tachy. RESPIRATORY: Breath sounds equal bilaterally. No accessory muscle use. GASTROINTESTINAL: Abdomen soft, non-tender, nondistended. EXTREMITIES: No cyanosis, or edema. NEUROLOGICAL: A&Ox3. Normal speech. No focal deficit. Assessment/Plan Problem List: (1) Sepsis Status: Resolved Plan: Zosyn stopped Temps thought to be due to tumor fevers On naprosyn Q12. (2) Breast cancer Status: Chronic Plan: --history of locally advanced left breast cancer, low ER positivity with a questionable metastatic focus at L4. --s/p neoadjuvant chemotherapy with residual disease at definitive surgery. --pathologic stage T2 N2a M0, ER negative, [place] negative, HER2/randa negative breast cancer. --s/p left chest wall radiation. --s/p radiation to the solitary L4 lesion. +concurrent Xeloda. --no evidence of disease at the time of completion of her therapy. (3) Liver lesion Status: Acute Plan: --liver biopsy shows poorly differentiated non small cell carcinoma --Staging evaluation from June showed no evidence of metastatic disease in the liver. --supportive treatment with Naprosyn, IV fluid hydration (4) History of DVT (deep vein thrombosis) Status: Resolved Plan: --u/s RLE and LUE both negative for DVT ++history of deep venous thromboses and has an inferior vena cava filter that is in place. Assessment 61-year-old female admitted with Fevers. Liver abscess versus mets. Tachycardia. and Leukocytosis. history of anxiety, depression, LLE DVT with a persistent inferior vena cava filter. h/o Left mastectomy. Plan 1. Give 1 unit PRBC today. 2. I personally called and spoke with pt's daughter over the phone, gave update on liver biopsy. 3. OK for discharge after transfusion. 4. Pt to followup in clinic on Thursday for chemo. Thao Prabhakar Jan 24, 2017 08:44
[2017-01-24 08:49] VITALS: BP 118/71; PULSE 112; RESP 16; TEMP 97.1; O2SAT 98
[2017-01-24] MEDS: NAPROXEN 250 MG TAB PO SCH (09:30)
[2017-01-24] MEDS: PANTOPRAZOLE SOD 20 MG DELAYED RELEASE TAB PO SCH (09:30)
[2017-01-24] MEDS: ACETAMINOPHEN 325 MG TAB PO PRN (09:31)
[2017-01-24] MEDS: PHYTONADIONE 5 MG TAB PO SCH (09:35)
[2017-01-24] MEDS ORDERED: NAPR250T PO (11:07)
[2017-01-24] MEDS ORDERED: PROT40TA PO (11:07)
[2017-01-24] MEDS ORDERED: ONDA4TAB7 PO (11:07)
--- NOTE | 2017-01-24 11:07 | HHI.DCPOC ---
Discharge Care Plan Diagnosis: (1) Breast cancer (2) Liver lesion (3) Rheumatoid arthritis (4) History of DVT (deep vein thrombosis) Goals to Promote Your Health * To prevent worsening of your condition and complications * To maintain your health at the optimal level Directions to Meet Your Goals Take your medications as prescribed Follow your dietary instruction Follow activity as directed Keep your appointments as scheduled Take your immunizations and boosters as scheduled If your symptoms worsen call your PCP, if no PCP go to Urgent Care Center or Emergency Room Smoking is Dangerous to Your Health. Avoid second hand smoke Call the 24-hour hour crisis hotline for domestic abuse at Nate Denton MD Jan 24, 2017 11:07
[2017-01-24 11:53] VITALS: BP 101/51; PULSE 137; RESP 18; TEMP 99.5
[2017-01-24 12:00] VITALS: BP 101/51; PULSE 137; RESP 18; TEMP 99.5; O2SAT 97
[2017-01-24 16:37] VITALS: BP 122/70; PULSE 111; RESP 18; TEMP 98.9; O2SAT 96
--- NOTE | 2017-02-05 16:01 | HHI.DS ---
Discharge Summary Admission Date January 21, 2017 at 18:05 Discharge Date: Jan 24, 2017 Admitting Diagnosis (1) Liver lesion Diagnosis: Principal (2) History of DVT (deep vein thrombosis) Diagnosis: Secondary (3) Breast cancer Diagnosis: Secondary (4) Rheumatoid arthritis Diagnosis: Secondary Consultants Dr. Rain Hernandez - Oncology Brief History Pt is 61 yo woman with hx left breast ca s/p lumpectomy, chemoradiation and follows with Dr Hernandez. She has RA but has apparently been off of her immunosuppressive med Arava. She presented to clinic with ongoing sx's of weakness, nausea, poor appetitite, fevers and night sweats. Eval in office revealed elevation of LFT and ct abd/pelvis at [place] showed a Large Liver lesion which could be a met vs liver abscess. She was directly admitted to evaluate this further. Imaging Last Impressions Upper Extremity Ultrasound 01/22/17 0000 Signed Impressions: Service Date/Time: , January 22, 2017 15:46 - CONCLUSION: No DVT is identified within the left upper extremity. Mandeep Caicedo MD Lower Extremity Ultrasound 01/22/17 0000 Signed Impressions: Service Date/Time: January 15:21 - CONCLUSION: 1. No sonographic evidence for lower extremity deep venous thrombosis bilaterally. Jorge Lopez MD Liver Biopsy CT 01/22/17 0000 Signed Impressions: Service Date/Time: January 10:09 - CONCLUSION: Uncomplicated CT guided biopsy of one of the right lobe liver lesions. Aspiration of the lesion did not yield any purulent material. Multiple samples were sent for pathological evaluation as well as microbiology analysis. Mandeep Caicedo MD Hospital Course Pt has hx left breast ca s/p lumpectomy and chemo with a questionable metastatic focus at L4 s/p left chest wall radiation and radiation to the solitary L4 lesion. Pt is on concurrent Xeloda. Presents with elevation of LFTs and a liver lesion concerning for met vs abscess. Pt had reported sx's of n /v fever, night sweats and weakness. Pt was had blood cultures drawn on 01/21 which were negative. Pt was started on broad spectrum abx with Zosyn. Pt went for a CT guided bx/aspiration of the lesion on 01/22/17. Bx shows liver lesion consistent with prior breast ca, poorly differentiated non small cell carcinoma. The antibiotics were stopped prior to discharge. Pt was noted to be anemic during admission and was transfused with one unit of PRBCs on 01/24/17. Pt will followup with Dr. Hernandez in clinic on Thursday01/26/17 for chemo. Pt Condition on Discharge: Stable Discharge Disposition: Discharge Home Discharge Instructions DIET: Follow Instructions for: As Tolerated, No Restrictions Additional Diet Instructions: ensure tid Activities you can perform: Regular-No Restrictions Follow up Referrals: Oncology - 01/26/[address] hernandez New Medications: Pantoprazole (Protonix) 40 Mg Tab 40 MG PO DAILY Reflux #30 Ref 0 TAB Naproxen (Naproxen) 250 Mg Tab 250 MG PO Q12H fever Days 5 TAB Ondansetron Odt (Ondansetron Odt) 4 Mg Tab 4 MG PO Q4-6H PRN nausea #30 TAB Discontinued Medications: ([no medication]) Terri Beltrán Feb 05, 2017 16:01
== END 2017-01-24 18:45 | disposition home or self-care (01) | DRG 435 ==
LOC: HOCA 18:05
PROVIDERS: ADMIT Internal Medicine Hematology & Oncology; ATTEND Internal Medicine Hematology & Oncology
PROC: 0FB03ZX Excision of Liver, Percutaneous Approach, Diagnostic (ICD-10-PCS; principal; 2017-01-22)
PROC: 30233N1 Transfusion of Nonautologous Red Blood Cells into Peripheral Vein, Percutaneous Approach (ICD-10-PCS; 2017-01-24)
DX: C78.7 Secondary malignant neoplasm of liver and intrahepatic bile duct (principal); A41.9 Sepsis, unspecified organism; D64.9 Anemia, unspecified; M06.9 Rheumatoid arthritis, unspecified; K11.7 Disturbances of salivary secretion; R50.81 Fever presenting with conditions classified elsewhere; F32.9 Major depressive disorder, single episode, unspecified; R63.4 Abnormal weight loss; F41.9 Anxiety disorder, unspecified; Z85.3 Personal history of malignant neoplasm of breast; Z86.718 Personal history of other venous thrombosis and embolism; Z90.12 Acquired absence of left breast and nipple; Z92.21 Personal history of antineoplastic chemotherapy; Z92.3 Personal history of irradiation
CPT/HCPCS: 36430; 47000; 77012; 80048; 80053; 82248; 83605; 84155; 85007; 85025; 85027; 85610; 85730; 86850; 86900; 86901; 86920; 87040; 87070; 87176; 87205; 87804; 88307; 88341; 88342; 93306; 93970; 93971; 99214; J2250; J2405; J2543; J2765; J3010; J7030; J7040; P9016